=== PATIENT | female | born 1990 | race Caucasian/White ===

== ENCOUNTER 2020-01-19 17:48 | Emergency (ER) | payer OTHER ==
[~2020-01-19] VITALS: Ht 154.9 cm; Wt 59.4 kg
[2020-01-19] MEDS ORDERED: CARAFATE1 GM PO (19:29)
[2020-01-19] MEDS ORDERED: PEPCID AC20 MG PO (19:29)
== END 2020-01-19 20:43 | disposition home or self-care (01) ==
LOC: ER 17:48
DX: K29.60 Other gastritis without bleeding (principal); Z03.818 Encounter for observation for suspected exposure to other biological agents ruled out; R10.13 Epigastric pain

== ENCOUNTER 2020-02-16 11:05 | Outpatient (CLI) | payer OTHER ==
[~2020-02-16 11:05] MED LIST: CARAFATE1 GM PO; PEPCID AC20 MG PO
== END 2020-02-16 11:10 | disposition home or self-care (01) ==
LOC: EKG 11:05
DX: Z01.810 Encounter for preprocedural cardiovascular examination (principal)

== ENCOUNTER 2020-02-16 11:50 | Outpatient (CLI) | payer OTHER | END 2020-02-16 13:00 | disposition home or self-care (01) | LOC: RAD 11:50 | DX: Z01.811 Encounter for preprocedural respiratory examination (principal) ==